=== PATIENT | male | born 1960 | race African-American/Black ===

== ENCOUNTER → 2017-05-03 | Outpatient (CLI) | payer OTHER | LOC: LAB EV 12:10 | DX: N39.0 Urinary tract infection, site not specified (principal) | CPT/HCPCS: 87086 ==

== ENCOUNTER → 2017-05-05 | Outpatient (CLI) | payer SELFPAY ==
[2017-05-05 11:15] LABS: Specimen Source URINE
[2017-05-05 12:14] LABS: Appearance, Urine Hazy (Clear); Blood, Urine 2+ (Neg); Glucose Qualitative, Urine Neg (Neg); Ketones, Urine Neg (Neg); Leukocyte Esterase, Urine Neg (Neg); Nitrite, Urine Pos (Neg); Protein, Urine 2+ (Neg); Urobilinogen, Urine 3+ (Normal)
[2017-05-05 12:25] LABS: Bilirubin, Urine 3+ (Neg); Color, Urine Orange (P-Yellow)
[2017-05-05 12:26] LABS: Red Blood Cells, Urine 0-2 /hpf (0-2); Squamous Epithelial Cells Many /hpf (Few)
[2017-05-05 12:27] LABS: Bacteria Many /hpf
[2017-05-06 02:24] LABS: Source Urine
== END ==
LOC: LAB 11:13
PROVIDERS: Registered Nurse
DX: R30.0 Dysuria (principal)
CPT/HCPCS: 81001; 87086; 87491; 87591